=== PATIENT | female | born 1960 | race Caucasian/White ===

== ENCOUNTER 2022-06-02 11:50 | Emergency (ER) | payer OTHER ==
[~2022-06-02] VITALS: Ht 157.5 cm; Wt 84.8 kg
[2022-06-02] MEDS ORDERED: D-ME118S47 PO (13:03)
[2022-06-02] MEDS ORDERED: AZIT250T9 PO (13:03)
[2022-06-02] MEDS ORDERED: ALBU90AE2 IH (13:03)
[2022-06-02] MEDS ORDERED: NIRM1TAB PO (13:03)
[2022-06-02] MEDS ORDERED: BENZ200C53 PO (13:03)
[2022-06-02 13:07] VITALS: BP 121/72
[2022-06-02 13:11] LABS: APPEARANCE,URINE CLEAR (CLEAR); BILIRUBIN,URINE NEGATIVE (NEGATIVE); COLOR,URINE YELLOW (YELLOW); GLUCOSE, URINE (UA) NEGATIVE (NEGATIVE); KETONES,URINE NEGATIVE (NEGATIVE); LEUKOCYTE ESTERASE ,URINE NEGATIVE Leu/uL (NEGATIVE); NITRATE,URINE NEGATIVE (NEGATIVE); OCCULT BLOOD,URINE NEGATIVE (NEGATIVE); PH,URINE 5.5 (5.0-8.0); PROTEIN,URINE NEGATIVE (NEGATIVE); UROBILINOGEN,URINE 0.2 mg/dL (0.2-1.0)
== END 2022-06-02 13:16 | disposition home or self-care (01) ==
LOC: EDH 11:50
DX: U07.1 COVID-19 (principal); B34.9 Viral infection, unspecified; I10 Essential (primary) hypertension; Z88.6 Allergy status to analgesic agent; Z90.49 Acquired absence of other specified parts of digestive tract; Z90.710 Acquired absence of both cervix and uterus; Z98.890 Other specified postprocedural states
CPT/HCPCS: 87804 ×2; 81003; 87635; 99283; C9803